=== PATIENT | male | born 1980 | race Two or more races ===

== ENCOUNTER 2020-01-18 15:48 | Emergency (ER) | payer OTHER, SELFPAY ==
--- NOTE | 2020-01-18 17:50 | EDM.PDOC ---
ED HPI GENERAL MEDICAL PROBLEM - General Chief Complaint: General Stated Complaint: L SIDE RIB PAIN Time Seen by Provider: 01/18/20 16:04 Source of Information: Reports: Patient History Limitations: Reports: No Limitations - History of Present Illness INITIAL COMMENTS - FREE TEXT/NARRATIVE: The patient presents with right rib pain and right shoulder pain after a fall on Friday. He has pain with movement. He did not hit his head and he had no LOC. He has no fever or cough. He has no abdominal pain, nausea or vomiting. He says about 5 months ago he fell and injured the same spot. Onset: Sudden Duration: Day(s): Location: Reports: Chest, Upper Extremity, Right (shoulder) Quality: Reports: Sharp Severity: Moderate Improves with: Reports: Immobilization Worsens with: Reports: Movement Context: Reports: Trauma (Slipped and fell on the ice) Associated Symptoms: Reports: Chest Pain. Denies: Cough, Fever/Chills, Headaches, Nausea/Vomiting, Shortness of Breath Treatments [address] SQL DEVELOPER: Reports: Other (see below) Other Treatments [address] [employer] DEVELOPER: topical cream to the shoulder Right Thoracic Pain Score (Numeric/FACES): 9 - Related Data Allergies Allergy/AdvReac Type Severity Reaction Status Date / Time No Known Allergies Allergy Verified 01/18/20 16:20 Home Meds: Home Meds Hydrocodone/Acetaminophen [Hydrocodon-Acetaminophen 5-325] 1 - 2 each PO Q6HR PRN #20 tablet 01/18/20 [Rx] Past Medical History - Past Health History Medical/Surgical History: Denies Medical/Surgical History Social & Family History - Tobacco Use Smoking Status *Q: Current Every Day Smoker Years of Tobacco use: 20 Packs/Tins Daily: 0.5 - Caffeine Use Caffeine Use: Reports: Coffee - Recreational Drug Use Recreational Drug Use: No ED ROS GENERAL - Review of Systems Review Of Systems: See Below Constitutional: Reports: No Symptoms HEENT: Reports: No Symptoms Respiratory: Reports: No Symptoms Cardiovascular: Reports: Chest Pain Endocrine: Reports: No Symptoms GI/Abdominal: Reports: No Symptoms : Reports: No Symptoms Musculoskeletal: Reports: Shoulder Pain (Right) ED EXAM, GENERAL - Physical Exam Exam: See Below Exam Limited By: No Limitations General Appearance: Alert, No Apparent Distress Ears: Normal External Exam Nose: Normal Inspection Head: Atraumatic, Normocephalic Neck: Normal Inspection Respiratory/Chest: No Respiratory Distress, Lungs Clear, Normal Breath Sounds Cardiovascular: Regular Rate, Rhythm, No Edema, No Murmur, Other (Right lower lateral chest pain upon palpation) Course - Vital Signs Last Recorded V/S: Last Vital Signs Temp 97.4 F 01/18/20 16:04 Pulse 87 01/18/20 16:04 Resp 96 H 01/18/20 16:04 BP 135/84 01/18/20 16:04 Pulse Ox 96 01/18/20 16:04 - Orders/Labs/Meds Orders: Active Orders 24 hr Category Date Time Status Incentive Spirometry [RT Incentive Spirometry] [RC] Care 01/18/20 17:38 Active ASDIRECTED Ribs 2V w Chest Rt [CR] Stat Exams 01/18/20 16:11 Taken Shoulder Comp Rt [CR] Stat Exams 01/18/20 16:12 Taken - Re-Assessments/Exams Free Text/Narrative Re-Assessment/Exam: 01/18/20 17:49 I ordered a CXR and an x-ray of his shoulder. I think there is a fracture of the 9th rib on the right. His shoulder looks good. I will get him an incentive spyrometer and something for pain. Departure - Departure Time of Disposition: 18:00 Disposition: Home, Self-Care 01 Condition: Good Clinical Impression: Fall Qualifiers: Encounter type: initial encounter Qualified Code(s): W19.XXXA - Unspecified fall, initial encounter Right rib fracture Qualifiers: Encounter type: initial encounter Rib fracture type: single rib Fracture type: closed Qualified Code(s): S22.31XA - Fracture of one rib, right side, initial encounter for closed fracture Sprain of right shoulder Qualifiers: Encounter type: initial encounter Shoulder sprain type: unspecified sprain Qualified Code(s): S43.401A - Unspecified sprain of right shoulder joint, initial encounter - Discharge Information *PRESCRIPTION DRUG MONITORING PROGRAM REVIEWED*: No *COPY OF PRESCRIPTION DRUG MONITORING REPORT IN PATIENT DENISE: No Prescriptions: Hydrocodone/Acetaminophen [Hydrocodon-Acetaminophen 5-325] 1 - 2 each PO Q6HR PRN #20 tablet PRN Reason: Pain Referrals: PCP,Not In Area [Primary Care Provider] - Additional Instructions: Use the incentive spyrometer 10 breaths every other hour while awake. Take tylenol or motrin for pain. If that does not help, try the hydrocodone. Please return if you are worse. Sepsis Event Note - Evaluation Sepsis Screening Result: No Definite Risk - Focused Exam Vital Signs: Vital Signs Temp Pulse Resp BP Pulse Ox 01/18/20 16:04 97.4 F 87 96 H 135/84 96 Date Exam was Performed: 01/18/20 Time Exam was Performed: 17:44 - My Orders Last 24 Hours: My Active Orders 01/18/20 16:11 Ribs 2V w Chest Rt [CR] Stat 01/18/20 16:12 Shoulder Comp Rt [CR] Stat 01/18/20 17:38 Incentive Spirometry [RT Incentive Spirometry] [RC] ASDIRECTED - Assessment/Plan Last 24 Hours: My Active Orders 01/18/20 16:11 Ribs 2V w Chest Rt [CR] Stat 01/18/20 16:12 Shoulder Comp Rt [CR] Stat 01/18/20 17:38 Incentive Spirometry [RT Incentive Spirometry] [RC] ASDIRECTED
--- NOTE | 2020-01-18 21:05 | CR ---
Chest and right ribs: Frontal view of the chest was obtained as well as 4 views of the right ribs. Comparison: Prior right rib and chest exam of 07/23/19. Findings: Heart size and mediastinum are within normal limits. Lungs show no acute parenchymal change. Small metallic density is again seen within the right chest. No discrete fracture or other right-sided rib abnormality is appreciated. Impression: 1. No discrete right-sided rib abnormality. 2. Nothing acute is seen on accompanying chest x-ray. Diagnostic code #2 This report was dictated in [place] Standard Time
--- NOTE | 2020-01-18 21:05 | CR ---
Right shoulder: 3 views of the right shoulder were obtained. Comparison: No previous shoulder study. Acromioclavicular and glenohumeral joints appear within normal limits. No fracture, dislocation or other bony abnormality is identified. Impression: 1. No abnormality is identified 3 view right shoulder study. Diagnostic code #1 This report was dictated in [place] Standard Time
== END 2020-01-18 18:08 | disposition home or self-care (01) ==
LOC: JD.ED 15:48
DX: S22.31XA Fracture of one rib, right side, initial encounter for closed fracture (principal); S43.401A Unspecified sprain of right shoulder joint, initial encounter; F17.210 Nicotine dependence, cigarettes, uncomplicated; W00.0XXA Fall on same level due to ice and snow, initial encounter
CPT/HCPCS: 71101-26-RT; 71101-RT; 73030-26-RT; 73030-RT; 99283; 99283-25

== ENCOUNTER 2020-01-21 17:56 | Emergency (ER) | payer OTHER, SELFPAY ==
[2020-01-21] MEDS ORDERED: Ondansetron 4 MG/2 ML SDV IVPUSH ONE (19:57)
[2020-01-21] MEDS ORDERED: HYDROmorphone 1 MG/ML Syringe IVPUSH STA (19:57)
[2020-01-21] MEDS ORDERED: Sodium Chloride 0.9% 1,000 ML IV SCH (20:00)
[2020-01-21] MEDS ORDERED: FLU Vacc QS2019-20(6MOS+)/PF 60 MCG/0.5 ML SYRINGE IM ONE (20:00)
--- NOTE | 2020-01-21 20:06 | EDM.PDOC ---
ED HPI GENERAL MEDICAL PROBLEM - General Chief Complaint: General Stated Complaint: LT SIDE RIB PAIN IS WORSE Time Seen by Provider: 01/21/20 19:24 Source of Information: Reports: Patient, Family (, son ) History Limitations: Reports: No Limitations, Language Barrier (Patient's primary language is Congolese, but he speaks and understands [place] fairly well. His son, who speaks fluent [place], acted as an exterior door installer when necessary.) - History of Present Illness INITIAL COMMENTS - FREE TEXT/NARRATIVE: Mr. Buenrostro is a very pleasant 39-year-old man with no chronic medical issues and a past surgical history that includes only a left inguinal hernia as a child, who, medical records indicate, was seen in this ED on 2019 with right rib pain and right shoulder pain after falling while skiing in [place] on 01/15/2020. He had pain with movement. He had not struck his head, and there was no loss of consciousness. He denied at the time any abdominal pain, nausea, or vomiting. He had reported that he had injured the same area about 5 months ago. He was found to be hemodynamically stable, afebrile, saturating 96% on room air. His physical exam was remarkable for tenderness to his right lower lateral chest. Work-up included a chest x-ray, rib x-rays, and x-rays of his right shoulder. The ED physician felt that there was a right 9th rib fracture. The patient was discharged home with a prescription for [place] #20 and advised to take [id number] Tylenol or ibuprofen, with [place] for breakthrough pain. He was also instructed to use an incentive spirometer, 10 breaths every other hour while awake. The Radiologist's subsequent interpretation of the rib x-rays was: 1. No discrete right-sided rib abnormality. 2. Nothing acute is seen on accompanying chest x-ray. The patient now returns to the ED stating that his lower right rib pain has increased, however, the patient is pointing to his abdominal right upper quadrant, not his chest. States that his pain radiates to his mid right back. His pain is made worse with movement, but he has not noticed an association with food. He is not taking Tylenol or ibuprofen, and he is only taken a total of 14 tablets of Manchester; he still has 6 tablets remaining. The patient states that he had similar pain in the same area last summer, that he thought was due to broken ribs, however, when asked about how it happened, he states that he was simply playing with his young son. Other than the abdominal pain, the patient denies recent fever, chills, cough, dyspnea, chest pain, palpitations, nausea, vomiting, constipation, diarrhea, urinary symptoms, recent weight gain or weight loss, recent bloody bowel movements or black bowel movements, recent joint aches, headaches, or rashes. The patient's last food was at 9 AM. He last drank at 3 PM. Here in the ED, the patient is found to be hemodynamically stable, afebrile, saturating 93% on room air. The patient does not have a PCP. He does not recall when his last general physical exam was. He did not receive an influenza vaccine this season, but agreed to receive one here today. Right Chest Pain Score (Numeric/FACES): 10 - Related Data Allergies Allergy/AdvReac Type Severity Reaction Status Date / Time No Known Allergies Allergy Verified 01/18/20 16:20 Home Meds: Home Meds Hydrocodone/Acetaminophen [Hydrocodon-Acetaminophen 5-325] 1 - 2 each PO Q6HR PRN #20 tablet 01/18/20 [Rx] Past Medical History - Past Surgical History GI Surgical History: Reports: Hernia, Inguinal (left) Social & Family History - Tobacco Use Smoking Status *Q: Current Every Day Smoker Years of Tobacco use: 23 Packs/Tins Daily: 0.5 - Caffeine Use Caffeine Use: Reports: Coffee - Alcohol Use Alcohol Use History: Yes Alcohol Use Frequency: Socially - Recreational Drug Use Recreational Drug Use: No - Living Situation & Occupation Living situation: Reports: , with Spouse, with Family (2 kids) Occupation: Employed (Construction) ED ROS GENERAL - Review of Systems Review Of Systems: Comprehensive ROS is negative, except as noted in HPI. ED EXAM, GI/ABD - Physical Exam Exam: See Below Exam Limited By: No Limitations General Appearance: Alert, WD/WN, No Apparent Distress (uncomfortable whan moves ) Eyes: Bilateral: Normal Appearance, EOMI Ears: Normal External Exam, Hearing Grossly Normal Nose: Normal Inspection Throat/Mouth: Normal Inspection, Normal Lips, Normal Voice, No Airway Compromise Head: Atraumatic, Normocephalic Neck: Normal Inspection, Full Range of Motion Respiratory/Chest: No Respiratory Distress, Lungs Clear, Normal Breath Sounds, No Accessory Muscle Use. No: Decreased Breath Sounds, Crackles, Rhonchi, Wheezing, Stridor, Pleural Rub (including at lower right ribs), Prolonged Expiration Cardiovascular: Normal Peripheral Pulses, Regular Rate, Rhythm, No Edema, No Gallop, No JVD, No Murmur, No Rub GI/Abdominal Exam: Normal Bowel Sounds, Soft, No Organomegaly, No Distention, No Abnormal Bruit, No Mass, Tender (Exquisite, reproducible, right upper quadrant only. Nontender elsewhere.) (Male) Exam: Deferred Rectal (Males) Exam: Deferred Back Exam: Normal Inspection, Full Range of Motion, Other (The patient localizes the pain that radiates through to his right back as infrascapular on the right, however, there is no tenderness at the site). No: CVA Tenderness (L) , CVA Tenderness (R) Extremities: Normal Inspection, Normal Range of Motion, No Pedal Edema, Normal Capillary Refill Neurological: Alert, Oriented, Normal Cognition, No Motor/Sensory Deficits Psychiatric: Normal Affect Skin Exam: Warm, Dry, Intact, Normal Color, No Rash Course - Vital Signs Last Recorded V/S: Last Vital Signs Temp 36.8 C 01/21/20 18:30 Pulse 71 01/21/20 18:30 Resp 20 01/21/20 18:30 BP 125/89 01/21/20 18:30 Pulse Ox 93 L 01/21/20 18:30 - Orders/Labs/Meds Orders: Active Orders 24 hr Category Date Time Status Influenza Vaccine Charge [RC] .DISCHARGE Care 01/21/20 19:59 Active Abdomen Ltd [US] Stat Exams 01/21/20 19:58 Taken Abdomen Pelvis w Cont [CT] Stat Exams 01/21/20 19:57 Taken Labs: Laboratory Tests 01/21/20 01/21/20 Range/Units 20:02 20:02 WBC 9.26 H (4.23-9.07) K/mm3 RBC 5.88 (4.63-6.08) M/mm3 Hgb 17.3 (13.7-17.5) gm/dl Hct 50.4 (40.1-51.0) % MCV 85.7 (79.0-92.2) fl MCH 29.4 (25.7-32.2) pg MCHC 34.3 (32.2-35.5) g/dl RDW Std Deviation 44.8 H (35.1-43.9) fL Plt Count 260 (163-337) K/mm3 MPV 10.1 (9.4-12.3) fl Neutrophils % (Manual) 43 (40-60) % Band Neutrophils % 0 (0-10) % Lymphocytes % (Manual) 42 H (20-40) % Atypical Lymphs % 3 % Monocytes % (Manual) 11 H (2-10) % Eosinophils % (Manual) 0 L (0.8-7.0) % Basophils % (Manual) 1 (0.2-1.2) Platelet Estimate Adequate RBC Morph Comment Normal Sodium 139 (136-145) mEq/L Potassium 3.9 (3.5-5.1) mEq/L Chloride 103 (98-107) mEq/L Carbon Dioxide 28 (21-32) mEq/L Anion Gap 11.9 (5-15) BUN 11 (7-18) mg/dL Creatinine 1.1 (0.7-1.3) mg/dL Est Cr Clr Drug Dosing 105.86 mL/min Estimated GFR (MDRD) > 60 (>60) mL/min BUN/Creatinine Ratio 10.0 L (14-18) Glucose 94 (74-106) mg/dL Calcium 9.2 (8.5-10.1) mg/dL Total Bilirubin 0.6 (0.2-1.0) mg/dL AST 27 (15-37) U/L ALT 93 H (16-63) U/L Alkaline Phosphatase 72 (46-116) U/L Total Protein 7.2 (6.4-8.2) g/dl Albumin 3.9 (3.4-5.0) g/dl Globulin 3.3 gm/dL Albumin/Globulin Ratio 1.2 (1-2) Lipase 158 (73-393) U/L Meds: Medications Discontinued Medications Generic Name Dose Route Start Last Admin Trade Name Freq PRN Reason Stop Dose Admin Diatrizoate Meglum/Diatrizoate Sod 60 ml 01/21/20 22:34 01/21/20 23:41 Gastrografin 37% PO 01/21/20 22:35 60 ml ONETIME ONE Administration Hydromorphone HCl 1 mg 01/21/20 19:57 01/21/20 20:08 Dilaudid IVPUSH 01/21/20 19:58 1 mg ONETIME STA Administration Sodium Chloride 1,000 mls @ 150 mls/hr 01/21/20 20:00 01/21/20 20:07 Normal Saline IV 150 mls/hr ASDIRECTED REGULO Administration Influenza Virus Vaccine 1 each 01/21/20 19:59 Pharmacy To Dose - Influenza Vaccine IM 01/21/20 20:00 ONETIME ONE Influenza Virus Vaccine 60 mcg 01/21/20 20:00 01/21/20 20:22 Fluzone Quad Syringe IM 01/21/20 20:01 60 mcg .ONCE ONE Administration Iopamidol 100 ml 01/21/20 22:34 01/21/20 23:41 Isovue-300 (61%) IVPUSH 01/21/20 22:35 100 ml ONETIME ONE Administration Ondansetron HCl 4 mg 01/21/20 19:57 01/21/20 20:08 Zofran IVPUSH 01/21/20 19:58 4 mg ONETIME ONE Administration Sodium Chloride 10 ml 01/21/20 22:34 01/21/20 23:41 Saline Flush FLUSH 10 ml ONETIME PRN Administration KEEP VEIN OPEN - Re-Assessments/Exams Free Text/Narrative Re-Assessment/Exam: 01/21/20 20:06 While the patient had been told on 01/18/2020, that he likely had a right 9th rib fracture, the chest and rib x-ray report from the Radiologist indicates no fractures or other abnormalities. Additionally, the patient's history is highly concerning for acute cholecystitis. Happily, his last oral solid intake was at 9 AM, and his last fluid intake was at 3 PM, therefore he is a candidate for an ultrasound of his right upper quadrant at this time. In addition, I have ordered blood work and a CT scan of his abdomen and pelvis with oral and IV contrast. In the meantime, the patient will be given IV Dilaudid, IV Zofran, and IV fluid. 01/21/20 22:36 Ultrasound of the right upper quadrant as read by [facility] as: 1. Small amount of gallbladder sludge without significant gallbladder wall thickening or pericholecystic fluid, however the sonographic Herrera's sign is positive which raises concern for underlying acute cholecystitis. Correlation with HIDA scan is recommended. 2. Diffuse hepatic steatosis and moderate hepatomegaly. 01/22/20 00:37 CT of the abdomen and pelvis with oral and IV contrast as read by Elli as: 1. Hepatic steatosis. 2. No evidence of acute cholecystitis. 01/22/20 00:43 Test results discussed with the patient, his , and mother. Although today' s work-up did not prove that his pain is due to acute cholecystitis, it still could be. Further work-up, including a HIDA scan, is needed. I am recommending that the patient eat as low-fat a diet as he can tolerate, and I will have him follow-up with Dr. Tai. Departure - Departure Time of Disposition: 00:44 Disposition: Home, Self-Care 01 Condition: Good Clinical Impression: Right upper quadrant abdominal pain of unknown etiology - Discharge Information *PRESCRIPTION DRUG MONITORING PROGRAM REVIEWED*: Not Applicable *COPY OF PRESCRIPTION DRUG MONITORING REPORT IN PATIENT DENISE: Not Applicable Instructions: Abdominal Pain, Adult, [id number] Referrals: Nanci Tai MD [Physician] - Forms: ED Department Discharge Additional Instructions: You were seen in the emergency room for continued/recurrent upper right abdominal pain that radiates through to your right back. Work-up in the ER included blood work, an ultrasound of your upper right abdomen , and a CT scan of your abdomen and pelvis with oral and IV contrast. The exact etiology of your pain has not yet been determined, but based on your history, physical exam, and ER tests, there is a good chance that your pain is coming from your gallbladder. We recommend that you eat as low-fat a diet as you possibly can. Eating fat/ grease/oil will cause you to have abdominal pain. Stay well-hydrated. We recommend that you follow-up with the Surgeon Dr. Nanci Tai at the next available appointment. He can arrange for further testing to help determine the cause of your pain. If any other problems, please do not hesitate to return to the ER. Sepsis Event Note - Evaluation Sepsis Screening Result: No Definite Risk - Focused Exam Vital Signs: Vital Signs Temp Pulse Resp BP Pulse Ox 01/21/20 18:30 36.8 C 71 20 125/89 93 L Date Exam was Performed: 01/22/20 Time Exam was Performed: 05:17 - My Orders Last 24 Hours: My Active Orders 01/21/20 19:57 Abdomen Pelvis w Cont [CT] Stat 01/21/20 19:58 Abdomen Ltd [US] Stat 01/21/20 19:59 Influenza Vaccine Charge [RC] .DISCHARGE - Assessment/Plan Last 24 Hours: My Active Orders 01/21/20 19:57 Abdomen Pelvis w Cont [CT] Stat 01/21/20 19:58 Abdomen Ltd [US] Stat 01/21/20 19:59 Influenza Vaccine Charge [RC] .DISCHARGE
[2020-01-21] MEDS ORDERED: Diatrizoate Meglumine/Diatrizoate Sodium 37% 120 ML Bottle PO ONE (22:34)
[2020-01-21] MEDS ORDERED: Sodium Chloride 0.9% 10 ML Syringe FLUSH PRN (22:34)
[2020-01-21] MEDS ORDERED: Iopamidol 612 MG/ML 100 ML Bottle IVPUSH ONE (22:34)
--- NOTE | 2020-01-22 17:09 | CT ---
CT abdomen and pelvis Technique: Multiple axial sections were obtained from above the dome of the diaphragm inferiorly through the pubic symphysis. Intravenous and oral contrast was utilized. Delayed images were also obtained through the bladder. Comparison: Prior abdominal ultrasound study performed earlier on the same date. Findings: Visualized lung bases show nothing acute. Liver shows diffuse fatty infiltration. Spleen appears normal. Gallbladder contains no calcified gallstones. Adrenal glands show no nodule. Pancreas is within normal limits. Kidneys show symmetric contrast enhancement without hydronephrosis or mass. Aorta shows no aneurysm. No retroperitoneal adenopathy or mesenteric abnormalities are seen. Appendix is seen which is normal in size. No pelvic mass or adenopathy is seen. No free fluid or inflammatory change is identified. Delayed images show contrast within both distal ureters and within the bladder. Bone window settings were reviewed which appear within normal limits for the patient's age. No acute osseous finding is seen. Impression: 1. Diffuse fatty infiltration within the liver. 2. Nothing acute is appreciated on CT study of the abdomen and pelvis. Diagnostic code #2 This report was dictated in [place] Standard Time I agree with preliminary report from [facility], finalized on 01/22/20 Central Time
--- NOTE | 2020-01-22 17:09 | US ---
Limited abdominal ultrasound: Multiple real-time images of the upper right abdomen were obtained. Comparison: No prior abdominal ultrasound or CT exam. Liver is very echogenic most likely representing fatty infiltration. Gallbladder shows minimal sludge. No gallbladder wall thickening is seen. Common bile duct not optimally visualized, no indirect evidence of biliary duct dilatation is seen. Right kidney shows no hydronephrosis or mass. Right kidney has a length of 12.4 cm. Visualized portions of the pancreas shows no discrete abnormality. Inferior vena cava is patent. Portal vein not optimally is seen but appears to have hepatopedal flow. Impression: 1. Very dense liver most likely representing fatty infiltration. 2. Study is slightly suboptimal due to bowel gas. 3. Small amount of sludge within the gallbladder. 3. Nothing acute is otherwise seen. Diagnostic code #3 This report was dictated in [place] Standard Time I agree with preliminary report from [facility], finalized on 01/21/20, 11:11 PM Central Time
== END 2020-01-22 01:00 | disposition home or self-care (01) ==
LOC: JD.ED 17:56
DX: R10.11 Right upper quadrant pain (principal); F17.210 Nicotine dependence, cigarettes, uncomplicated; Z23 Encounter for immunization
CPT/HCPCS: 36415; 74177; 76705; 80053; 83690; 85007; 85027; 90471; 90686; 96361; 96374; 96375; 99285; J1170; J2405; J7030; Q9963; Q9967; 99284; G0008